=== PATIENT | female | born 2005 | race Caucasian/White ===

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

== ENCOUNTER 2024-02-27 21:37 | Outpatient (REF) | payer BC, SELFPAY ==
[2024-03-01 12:47] LABS: Chlamydia Result Negative (Negative); GC Result Negative (Negative)
== END 2024-02-27 21:38 | disposition home or self-care (01) ==
LOC: LBN 21:37
PROVIDERS: Visit Provider Nurse Practitioner Family
DX: Z11.3 Encounter for screening for infections with a predominantly sexual mode of transmission (principal)
CPT/HCPCS: 87491; 87591

== ENCOUNTER 2024-12-30 21:38 | Outpatient (REF) | payer BC, SELFPAY ==
[2024-12-30 21:48] LABS: ALT 19 U/L (14-59); AST 15 U/L (15-37); Albumin 4.8 g/dL (3.4-5.0); Alkaline Phosphatase 78 U/L (46-116); BUN 13 mg/dL (7-18); Bilirubin, Total 0.7 mg/dL (0.2-1.0); CREATININE 0.8 mg/dL (0.55-1.02); Calcium 9.8 mg/dL (8.5-10.1); Chloride 102 mmol/L (98-107); Estimated GFR 108.11 (mL/min/1.73m2); Glucose 93 mg/dL (74-106); Potassium 4.1 mmol/L (3.5-5.1); Sodium 141 mmol/L (136-145); Total Protein 7.9 g/dL (6.4-8.2)
[2024-12-30 22:25] LABS: Lipase 36 U/L (<78)
[2025-01-03 15:23] LABS: IgA 86 mg/dL (85-499); Interpretation (See Note); Tissue Transglutaminase IgA <4.0 CU (<20.0)
== END 2024-12-30 21:39 | disposition home or self-care (01) ==
LOC: NCHCN 21:38
PROVIDERS: Visit Provider Family Medicine
DX: K21.9 Gastro-esophageal reflux disease without esophagitis (principal)
CPT/HCPCS: 80053; 82784; 83516; 83690; 87338

== ENCOUNTER 2025-05-06 15:37 | Outpatient (REF) | payer BC, SELFPAY ==
[2025-05-09 12:32] LABS: Chlamydia Result Negative (Negative); GC Result Negative (Negative)
== END 2025-05-06 15:38 | disposition home or self-care (01) ==
LOC: LBN 15:37
PROVIDERS: Visit Provider Obstetrics & Gynecology
DX: Z11.3 Encounter for screening for infections with a predominantly sexual mode of transmission (principal)
CPT/HCPCS: 87491; 87591